=== PATIENT | male | born 1980 ===

== ENCOUNTER 2025-03-16 09:52 | Emergency (ER) | payer SELFPAY ==
[2025-03-16 10:01] VITALS: BMI 22.8
--- NOTE | 2025-03-16 10:05 | EKG_ITS ---
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
[2025-03-16 10:15] VITALS: BP 136/90; PULSE 81; RESP 14; TEMP 36.4; O2SAT 100; BMI 24.4
--- NOTE | 2025-03-16 10:44 | EDNOTE_ITS ---
ED General RME/HPI General Chief complaint: Medical Clearance Stated complaint: MEDICAL CLEARANCE Time Seen by Provider: 03/16/25 10:38 Arrival date/time: 03/16/25 09:52 Limitations: no limitations RME / HPI RME / HPI narrative: DR. QUILES MAIN ED EVALUATION: 45 year old male presents to the Emergency Department brought in by police with complaints of chest pain with associated shortness of breath. Per police, patient was fine until he got the handcuffs on. Patient states that his chest pain started yesterday. Pain is described as aching and rated 8/10. PMHx: Hypertension and diabetes. Social Hx: Homelessness. Current cigarettes's smoker. Related Data Allergies Allergy/AdvReac Type Severity Reaction Status Date / Time No Known Allergies Allergy Verified 03/16/25 10:05 Review of Systems Review of Systems Systems Reviewed: All systems reviewed, normal except as documented Past Medical History Past Medical History CARDIAC: Positive Hypertension ENDOCRINE: Positive Diabetes Mellitus Type 2 Social History SMOKING STATUS: Current every day smoker SUBSTANCE USE: does not use ALCOHOL: Never ED Exam General Limitations: Present no limitations General appearance: Present alert, in no apparent distress and other (patient is a little sleepy but arousable and alert and oriented) Head Head exam: Present atraumatic, normocephalic and normal inspection Eye Eye exam: Present normal appearance, PERRL and EOMI ENT ENT exam: Present normal exam, normal oropharynx and mucous membranes moist Neck Neck exam: Present normal inspection, full ROM and trachea midline Chest Chest inspection: Present normal inspection and symmetric chest wall rise Respiratory Respiratory exam: Present normal lung sounds bilaterally Cardiovascular Cardiovascular exam: Present normal rhythm, tachycardia and normal heart sounds Abdominal Exam Abdominal exam: Present soft and normal bowel sounds Extremities Exam Extremities exam: Present normal inspection and full ROM Back Exam Back exam: Present normal inspection and full ROM Neurological Exam Neurological exam: Present alert, oriented X3 and CN II-XII intact Psychiatric Psychiatric exam: Present normal affect and normal mood Skin Skin exam: Present warm, dry, intact and normal color Course Quality Measures none Orders Category Date Time Status Slitter Cut Off Operator STAT Care 03/16/25 10:42 Active Continuous Pulse Oximetry ONCE Care 03/16/25 10:42 Active EKG (ED ONLY) *Do not use* NOW Care 03/16/25 10:05 Completed EKG (ED Only) Stat Exams 03/16/25 10:05 Draft XR chest 1V portable Stat Exams 03/16/25 10:42 Completed Alcohol, Blood Medical Stat Lab 03/16/25 10:15 Completed CBC Stat Lab 03/16/25 10:15 Completed Comprehensive Metabolic Panel Stat Lab 03/16/25 10:15 Completed Troponin I Stat Lab 03/16/25 10:15 Completed Aspirin Chew Med 03/16/25 10:40 Discontinued 324 mg PO X1 ONE Vital Signs Vital signs: Vital Signs Temperature 97.5 F 03/16/25 10:15 Pulse Rate 81 03/16/25 10:15 Respiratory Rate 14 03/16/25 10:15 Blood Pressure 136/90 H 03/16/25 10:15 Pulse Oximetry (%) 100 03/16/25 10:15 Oxygen Delivery Method Room Air 03/16/25 10:15 Procedures -ED Smoking Cessation Time Spent Discussing Smoking Cessation w/Patient (min): 3 Patient Acknowledges Need for Cessation: Yes Additional Comments: The patient was counseled as to the multiple risks to their health from continued use of tobacco products. It was explained that continuing to smoke may lead to multiple short and termite treater negative health consequences, including but not limited to mouth/esophageal/lung cancer, COPD, and heart disease. The patient states they understand these risks, and also understand the options and resources available to them to help them stop smoking. Nicotine replacement therapy, local hotlines, and local resources were discussed as viable options for helping them stop their tobacco use. The total time spent counseling the patient regarding tobacco cessation was 3 minutes. Discharge Plan Plan Patient Disposition: HOME (Self Care) Patient condition on transfer: Stable Prescriptions/Referrals Referrals: No Primary/Family,Physician [Primary Care Provider] - In 1 week Problem List Clinical Impression: Chest pain of uncertain etiology Patient/Caregiver Discharge Instructions Education Materials: ED Chest Pain, Uncertain Cause Additional Instructions: Please follow-up with your primary care physician within a week. Return to the Emergency Department as needed. Please follow up with your doctor for a stress test and/or cardiology consult. Print Language: Hungarian Stand Alone Forms: Alea Award Info., Patient Portal Info Letter MDM Narrative [facility] hospital course: Laxmi Kirk, am scribing for and in the presence of Dr. Quiles. Clinical Information Provided by patient and law enforcement Medical Records Reviewed None Meds/Rx Considered, not Ordered None Labs/Rad/Tests considered, not Ordered None Chronic Illness/Social Conditions Add or document further as needed: PMHx: Hypertension and diabetes. Social Hx: Homelessness. Current cigarettes's smoker. EKG Interpretation EKG #1: Date/time of EK03/16/25 10:10 am EKG interpretation: sinus rhythm, rate 84, LVH, no STEMI, NE interval 158 ms, QRS duration 101 ms, QT/QTc 409/450, P-R-T axis 54, 3, 57 Imaging Radiology reports / interpretation(s): Procedure(s): XR chest 1V portable Accession Number(s): [id number] cc: Rustam Quiles MD; Justin Gonzáles MD; NO PRIMARY/FAMILY,PHYSICIAN~ Examination: AP chest single view TECHNIQUE: Portable sitting AP chest single view Date and time: March 16, 2025 at 11:00 AM INDICATIONS: Onset chest pain today. FINDINGS: Mild prominence left ventricle No pneumonia or pulmonary edema. The osseous structures are intact IMPRESSION: No active disease Dictated By: Justin Gonzáles MD Medication Administration(s) Medication Administration History Discontinued Medications Aspirin (Aspirin 81 Mg Chew) 324 mg PO X1 ONE Stop: 03/16/25 10:41 Last Admin: 03/16/25 11:13 Dose: 324 mg Documented By: EF Diagnosis Differential diagnosis: CT, costochondritis, muscle spasm Most likely dx, and/or detailed dx discussion: Chest pain of uncertain etiology Dispositon Disposition: Incarceration/CPS
[2025-03-16 11:01] LABS: Basophils % (Auto) 1 % (0-2.5); Eosinophils # (Auto) 0.1 Thou/mm3 (0.0-0.5); Eosinophils % (Auto) 2 % (0-10); Hematocrit 35.8 % (41.0-53.0); Hemoglobin 11.9 g/dL (13.5-16.0); Immature Granulocytes % (Auto) 0 % (0-0); Immature Granulocytes Auto 0.01 Thou/mm3 (0.00-0.00); Lymphocytes # (Auto) 1.9 Thou/mm3 (1.0-4.8); Lymphocytes % (Auto) 23 % (10-50); Mean Corpuscular HGB Conc 33.2 g/dl (31.0-37.0); Mean Corpuscular Hemoglobin 29.6 pg (25.0-35.0); Mean Corpuscular Volume 89 fL (80-100); Monocytes # (Auto) 0.4 Thou/mm3 (0.0-0.8); Monocytes % (Auto) 4 % (0-12); Neutrophils # (Auto) 5.8 Thou/mm3 (1.8-7.7); Neutrophils % (Auto) 71 % (37-80); Nucleated Red Blood Cell % 0 /100 WBC (0); Platelet Count 232 Thou/mm3 (140-440); RDW Standard Deviation 48.4 fL (35.1-43.9); Red Blood Count 4.02 Miln/mm3 (4.50-5.90); White Blood Count 8.2 Thou/mm3 (3.8-10.6)
[2025-03-16 11:08] LABS: Alanine Aminotransferase 31 U/L (10-49); Albumin, Serum 4.4 gm/dL (3.5-5.0); Albumin/Globulin Ratio 1.4 (1.2-2.2); Alcohol, Blood Medical < 3.0 mg/dL (0-10.0); Alkaline Phosphatase 103 U/L (46-116); Anion Gap 11 (7-16); Aspartate Amino Transferase 38 U/L (0-34); BUN/Creatinine Ratio 12 Ratio (12-20); Bilirubin,Total 0.3 mg/dL (0.3-1.2); Blood Urea Nitrogen 16 mg/dL (9-23); Chloride 102 mMol/L (98-107); Creatinine (Component) 1.3 mg/dL (0.6-1.3); Estimated Creatinine Clearance 70.2 mL/min (>60); Globulin 3.1 gm/dL (2.3-3.5); Glucose 184 mg/dL (74-106); Osmolality,Calculated 280 (275-295); Potassium 3.8 mMol/L (3.4-5.1); Sodium 137 mMol/L (136-145); Total Protein 7.5 gm/dL (5.7-8.2); Troponin I < 0.020 ng/mL (0.0-0.045); eGFR > 60 See Note
[2025-03-16 11:09] VITALS: PULSE 72
[2025-03-16] MEDS: ASPIRIN 81 MG CHEW 324 MG PO (11:13)
[2025-03-16 12:13] VITALS: BP 142/99; PULSE 88; RESP 17; O2SAT 100
== END 2025-03-16 14:42 | disposition home or self-care (01) ==
PROVIDERS: Emergency Provider Family Medicine
DX: Z02.89 Encounter for other administrative examinations (principal); R07.9 Chest pain, unspecified; R94.31 Abnormal electrocardiogram [ECG] [EKG]; I10 Essential (primary) hypertension; F17.210 Nicotine dependence, cigarettes, uncomplicated; Z59.00 Homelessness unspecified
CPT/HCPCS: 36415; 71045; 80053; 80307; 80320; 84484; 85025; 93005; 99283; A9270; G0480